=== PATIENT | male | born 1985 | race Caucasian/White ===

== ENCOUNTER 2017-08-23 09:00 | Emergency (ER) | payer SELFPAY ==
[~2017-08-23] VITALS: Ht 182.9 cm; Wt 74.8 kg
[2017-08-23] MEDS ORDERED: DEXAMETHASONE SOD PHOSPHATE 4 MG INJ IV ONE (09:30)
[2017-08-23] MEDS ORDERED: CLINDAMYCIN PHOSPHATE IV 600 MG in IV DEXTROSE 5% 100 ML IV ONE (09:30)
[2017-08-23] MEDS ORDERED: KETOROLAC TROMETHAMINE 15 MG INJ IVP ONE (09:30)
[2017-08-23] MEDS ORDERED: DEXAMETHASONE SOD PHOSPHATE 10 MG INJ ONE (09:43)
[2017-08-23] MEDS ORDERED: KETOROLAC TROMETHAMINE 15 MG INJ ONE (09:44)
[2017-08-23] MEDS ORDERED: CLINDAMYCIN PHOSPHATE 600 MG/4 ML VIAL ONE (09:44)
[2017-08-23 09:54] LABS: BASOPHILS # (AUTO) 0.1 K/uL (0.0-8.0); BASOPHILS % (AUTO) 0.4 % (0.0-2.0); EOSINOPHILS # (AUTO) 0.1 K/uL (0.0-0.7); EOSINOPHILS % (AUTO) 0.5 % (0.0-7.0); HEMATOCRIT 40.5 % (36.7-47.1); LYMPHOCYTES # (AUTO) 1.2 K/uL (20.0-40.0); LYMPHOCYTES % (AUTO) 7.3 % (20.5-51.5); MEAN CORPUSCULAR HGB CONC 35 g/dL (32.5-36.3); MEAN CORPUSCULAR VOLUME 83.9 fL (73.0-96.2); MONOCYTES # (AUTO) 1.1 K/uL (2.0-10.0); MONOCYTES % (AUTO) 6.8 % (0.0-11.0); NEUTROPHILS # (AUTO) 14.3 K/uL (1.8-8.9); PLATELET COUNT (AUTO) 238 K/uL (152-348); RED BLOOD CELL COUNT(AUTO) 4.83 MIL/uL (4.06-5.63); WHITE BLOOD COUNT (AUTO) 16.8 K/uL (3.6-10.2)
[2017-08-23 10:03] LABS: CREATININE 0.8 mg/dL (0.6-1.3)
[2017-08-23 10:07] LABS: BILIRUBIN,DIRECT 0.1 mg/dL (0.0-0.2); BILIRUBIN,TOTAL 0.3 mg/dL (0.2-1.0); TOTAL PROTEIN, SERUM 7.3 g/dL (6.4-8.2)
--- NOTE | 2017-08-23 12:51 | NUR ---
PT WAS EVALUATED BY DR SIFUENTES. PT WAS D/C TO HOME. D/C INSTRUCTIONS GIVEN TO THE PT.
[2017-08-23 12:53] VITALS: BP 132/68
== END 2017-08-23 12:56 | disposition home or self-care (01) ==
LOC: ER 09:00
DX: J03.90 Acute tonsillitis, unspecified (principal); F17.210 Nicotine dependence, cigarettes, uncomplicated
CPT/HCPCS: 36415; 70030-TC; 83605; 85025; 86403; 87040; 87070; 87400; A4663; J1100; J1885; J3490